=== PATIENT | male | born 1955 | race African-American/Black ===

== ENCOUNTER 2017-01-21 11:45 | Emergency (ER) | payer BC ==
[2017-01-21 11:50] VITALS: BP 125/76
--- NOTE | 2017-01-21 11:58 | ER Document Report ---
ED Medical Screen (RME) - General Stated Complaint: RIGHT TESTICULAR PAIN Time seen by provider: 11:54 Mode of Arrival: Ambulatory Information source: Patient Notes: 61-year-old male complaining of right testicle and scrotal pain and swelling since . This swelling and pain is actually decreased but he feels a lump on the bottom part of his right testicle. I have greeted and performed a rapid initial assessment of this patient. A comprehensive ED assessment, evaluation of the patient, analysis of test results , and completion of the medical decision making process will be conducted by additional ED providers. TRAVEL OUTSIDE OF THE [place] IN LAST 30 DAYS: No - Related Data Allergies/Adverse Reactions: No Known Allergies Allergy (Unverified 12/17/15 14:46) Past Medical History - Immunizations Hx Diphtheria, Pertussis, Tetanus Vaccination: Yes Physical Exam - Vital signs Vitals: Temp Pulse Resp BP Pulse Ox 98.1 F 83 18 125/76 97 01/21/17 11:49 01/21/17 11:49 01/21/17 11:49 01/21/17 11:49 01/21/17 11:49 Course - Vital Signs Vital signs: Temp Pulse Resp BP Pulse Ox 98.1 F 83 18 125/76 97 01/21/17 11:49 01/21/17 11:49 01/21/17 11:49 01/21/17 11:49 01/21/17 11:49
[2017-01-21 15:04] LABS: APPEARANCE,URINE CLEAR; BILIRUBIN,URINE NEGATIVE (NEGATIVE); GLUCOSE, URINE NEGATIVE (NEGATIVE); KETONES,URINE NEGATIVE (NEGATIVE); LEUKOCYTE ESTERASE,URINE NEGATIVE (NEGATIVE); NITRITE,URINE NEGATIVE (NEGATIVE); PROTEIN,URINE NEGATIVE (NEGATIVE); URINE SPECIFIC GRAVITY 1.011; UROBILINOGEN,URINE NEGATIVE mg/dL (<2.0)
[2017-01-21] MEDS ORDERED: LIDOCAINE 1% INJ-PF (10 MG/ML) 30 ML SDV INJ ONE (15:54)
[2017-01-21] MEDS ORDERED: DOXYCYCLINE HYCLATE 100 MG TABLET PO ONE (15:54)
[2017-01-21] MEDS ORDERED: CEFTRIAXONE INJ 250 MG VIAL IM ONE (15:54)
--- NOTE | 2017-01-21 16:03 | ER Document Report ---
HPI - HPI Patient complains to provider of: scrotal tenderness Onset: Other - 5 days Onset/Duration: Better Quality of pain: Achy Pain Level: 3 Context: Patient reports 5 day history of right side scrotal tenderness and swelling. Patient states that area was more tender yesterday, but the pain has improved today. Patient denies any drainage or discharge from the penis. Patient denies any concern about sexually transmitted infection. Patient additionally reports that he has had swelling to his right jaw area for over 3 years and would like to have it looked at as well. Patient states that he saw a doctor about removing the lesion from his jaw, but was told he would have to have $500. Associated Symptoms: Other - Scrotal tenderness and swelling. denies: Fever Exacerbated by: Denies Relieved by: Denies Similar symptoms previously: No Recently seen / treated by doctor: No - ROS ROS below otherwise negative: Yes Systems Reviewed and Negative: Yes All other systems reviewed and negative - CONSTITUTIONAL Constitutional: DENIES: Fever, Chills - EENT Notes: Swollen area to right jaw - NEURO Neurology: DENIES: Headache, Weakness - GASTROINTESTINAL Gastrointestinal: DENIES: Abdominal Pain, Nausea, Patient vomiting - URINARY Urinary: DENIES: Dysuria Notes: Scrotal tenderness and swelling to the right side - MUSCULOSKELETAL Musculoskeletal: DENIES: Extremity pain, Back Pain, Neck Pain - DERM Skin Color: Normal Skin Problems: None Past Medical History - General Information source: Patient - Social History Smoking Status: Current Every Day Smoker Chew tobacco use (# tins/day): No Frequency of alcohol use: None Drug Abuse: None Occupation: [employer] Family History: Reviewed & Not Pertinent Patient has suicidal ideation: No Patient has homicidal ideation: No Renal/ Medical History: Denies: Hx Peritoneal Dialysis Psychiatric Medical History: Reports: Hx Anxiety Surgical Hx: Negative - Immunizations Hx Diphtheria, Pertussis, Tetanus Vaccination: Yes Vertical Provider Document - CONSTITUTIONAL Agree With Documented VS: Yes Exam Limitations: No Limitations General Appearance: WD/WN, No Apparent Distress - INFECTION CONTROL TRAVEL OUTSIDE OF THE [place] IN LAST 30 DAYS: No - HEENT HEENT: Atraumatic, Normocephalic Notes: Patient with nontender well-circumscribed mobile lesion to angle of mandible on right side. No trismus, no potential airway compromise. No sublingual or submental swelling. - NECK Neck: Normal Inspection, Supple. negative: Lymphadenopathy-Left, Lymphadenopathy-Right - RESPIRATORY Respiratory: Breath Sounds Normal, No Respiratory Distress O2 Sat by Pulse Oximetry: 97 - CARDIOVASCULAR Cardiovascular: Regular Rate, Regular Rhythm - GI/ABDOMEN Gastrointestinal: Abdomen Soft - REPRODUCTIVE Male Genitalia: Abnormal Inspection - Scrotal swelling with tenderness and enlargement of the epididymis to right testicle, normal skin color and temperature to scrotum. Tracie RN as standby during examination - BACK Back: Normal Inspection - MUSCULOSKELETAL/EXTREMETIES Musculoskeletal/Extremeties: YOJANA GONZALEZ - NEURO Level of Consciousness: Awake, Alert, Appropriate Motor/Sensory: No Motor Deficit - DERM Integumentary: Warm, Dry, No Rash Adult Front & Back Diagram: 1 - Nontender well-circumscribed skin lesion Course - Re-evaluation Re-evalutation: 01/21/17 16:[address] Herring regarding patient's ultrasound report. Recommends treatment for epididymitis and urology follow-up. No concern for testicular torsion at this time. 01/21/17 16:00 - Vital Signs Vital signs: Temp Pulse Resp BP Pulse Ox 98.1 F 83 18 125/76 97 01/21/17 11:49 01/21/17 11:49 01/21/17 11:49 01/21/17 11:49 01/21/17 11:49 - Laboratory Laboratory results interpreted by me: 01/21/17 14:50 Urine Ascorbic Acid 40 H - Diagnostic Test Radiology reviewed: Reports reviewed Discharge - Discharge Clinical Impression: Scrotal pain, Epididymitis, Cyst of jaw Disposition: HOME, SELF-CARE Instructions: Epididymitis ([facility]), Anti-Inflammatory Medication ([facility]), Doxycycline ([facility]), Warm Packs ([facility]) Additional Instructions: Return immediately for any new or worsening symptoms Followup with your primary care provider, call tomorrow to make a followup appointment follow up with a urologist for further evaluation of scrotal pain and swelling follow up with a surgeon or ENT for further evaluation of skin lesion to neck Prescriptions: Doxycycline Hyclate 100 mg PO BID #20 capsule Hydrocodone/Acetaminophen [[place] 5-325 Tablet] 1 each PO Q4 PRN #15 tablet PRN Reason: Naproxen [Naprosyn 250 Nmg Tablet] 1 tab PO BID #14 tablet Referrals: [facility] [Provider Group] - Follow up as needed [facility] [Provider Group] - Follow up as needed [facility] [Provider Group] - Follow up tomorrow [facility] [Provider Group] - Follow up tomorrow
[2017-01-21 16:32] LABS: CHLAM PCR NOT DETECTED (NOT DETECT)
== END 2017-01-21 16:25 | disposition home or self-care (01) ==
LOC: ER 11:45
DX: N50.82 Scrotal pain (principal); N45.1 Epididymitis; M27.40 Unspecified cyst of jaw; F17.200 Nicotine dependence, unspecified, uncomplicated
CPT/HCPCS: 99284; 96372; 81001; 87491; 87591; 76870; 93976; J3490; J0696